=== PATIENT | male | born 1990 | race African-American/Black ===

== ENCOUNTER 2020-09-06 08:18 | Emergency (ER) | payer MEDICAID, OTHER ==
[~2020-09-06] VITALS: Ht 172.7 cm; Wt 78.0 kg
[2020-09-06 11:00] VITALS: BP 108/65
== END 2020-09-06 11:40 | disposition home or self-care (01) ==
LOC: ER 08:18
DX: S05.92XA Unspecified injury of left eye and orbit, initial encounter (principal); W34.010A Accidental discharge of airgun, initial encounter; V09.9XXA Pedestrian injured in unspecified transport accident, initial encounter; Y93.01 Activity, walking, marching and hiking; Y92.89 Other specified places as the place of occurrence of the external cause; Y99.8 Other external cause status
CPT/HCPCS: 70486; 99285